=== PATIENT | male | born 1955 | race Caucasian/White ===

== ENCOUNTER 2019-07-08 16:02 | Outpatient (RCR) | payer OTHER, SELFPAY ==
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
--- NOTE | 2019-08-18 09:25 | PCPTNOTE ---
08/18/19 - patient has called and cancelled therapy this date. JTF
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
--- NOTE | 2019-10-17 09:30 | PCOTNOTE ---
Patient has been discharged from skilled OT services. Patient last seen on 09/20/19 (see last treatment note for status and progress towards goals). Patient was not scheduled for additional therapy secondary to radiation and then precautions of COVID-19. Patient discharged at this time.
== END 2019-09-16 23:59 | disposition home or self-care (01) ==
LOC: CHSPT 16:02
PROVIDERS: Visit Provider Psychiatry & Neurology Neurology
DX: S32.059A Unspecified fracture of fifth lumbar vertebra, initial encounter for closed fracture (principal); S22.010A Wedge compression fracture of first thoracic vertebra, initial encounter for closed fracture; S06.9X9A Unspecified intracranial injury with loss of consciousness of unspecified duration, initial encounter; C79.31 Secondary malignant neoplasm of brain; R53.1 Weakness
CPT/HCPCS: 97110; 97162; 97165; 97530

== ENCOUNTER 2019-08-22 15:30 | Outpatient (CLI) | payer OTHER, SELFPAY ==
[2019-08-22 15:41] LABS: Basophils Absolute Auto 0.01 K/mm3 (0.00-0.10); Basophils Percent Auto 0.1 % (0.0-1.0); Eosinophils Absolute Auto 0.05 K/mm3 (0.02-0.50); Eosinophils Percent Auto 0.4 % (1.0-6.0); Hematocrit 32.9 % (40.0-54.0); Hemoglobin 9.5 g/dL (14.0-18.0); Immature Granulocyte Absolute 0.25 K/mm3 (0.00-0.00); Immature Granulocyte Percent A 1.9 % (0.0-0.0); Lymphocytes Absolute Auto 1.46 K/mm3 (1.10-4.50); Lymphocytes Percent Auto 11.2 % (18.0-42.0); Mean Corpuscular HGB Conc 28.9 g/dL (32.0-36.0); Mean Corpuscular Hemoglobin 21.9 pg (27.0-31.0); Mean Platelet Volume 9.2 fl (8.7-11.0); Monocytes Absolute Auto 1.13 K/mm3 (0.10-0.90); Monocytes Percent Auto 8.6 % (2.0-11.0); Neutrophils Absolute Auto 10.2 K/mm3 (1.7-7.2); Neutrophils Percent Auto 77.8 % (50.0-70.0); Nucleated Red Blood Cells Absolute Auto 0.03 K/mm3 (0.00-0.00); Nucleated Red Blood Cells Perc 0.2 % (0-0.0); Platelet Count Result 271 K/mm3 (150-420); Red Blood Count 4.33 M/mm3 (4.70-6.10); Red Cell Distribution Width 21.7 % (11.6-14.4); White Blood Count 13.1 K/mm3 (4.8-10.8)
[2019-08-22 15:53] LABS: Add Urine Microscopic? YES; Appearance Urine Clear (Clear); Bilirubin Urine Negative (Negative); Blood Urine Negative (Negative); Color Urine Yellow (Yellow); Glucose Urine UA Negative (Negative); Ketones Urine Trace (Negative); Leukocyte Esterase Ur Negative (Negative); Nitrate Urine Negative (Negative); Protein Urine Negative (Negative); Urobilinogen Urine 0.2 mg/dL (0.2-1.0); pH Urine 5.5 (5.0-8.0)
[2019-08-22 16:14] LABS: Bacteria Urine Trace /hpf; WBC Urine 0-3 /hpf (0-3)
[2019-08-22 17:22] LABS: Alanine Aminotransferase 53 U/L (16-63); Albumin Level 2.3 g/dL (3.4-5.0); Alkaline Phosphatase 229 U/L (46-116); Anion Gap 16.2 mmol/L (7-16); Aspartate Amino Transferase 9 U/L (15-37); Bilirubin,Total 0.4 mg/dL (0.00-1.00); Blood Urea Nitrogen 27 mg/dL (7-18); Calcium 8.1 mg/dL (8.5-10.1); Carbon Dioxide 25 mmol/L (21-32); Chloride 104 mmol/L (98-108); Estimated Glomerular Filt Rate > 60; Glucose 119 mg/dL (70-99); Osmolality Calculated 298 mOsm/kg (285-295); Potassium 4.2 mmol/L (3.5-5.1); Sodium 141 mmol/L (136-145); Total Protein 5.5 g/dL (6.4-8.2)
== END 2019-08-22 15:31 | disposition home or self-care (01) ==
LOC: CHSLAB 15:32
PROVIDERS: PCP Internal Medicine; Visit Provider Internal Medicine
DX: N39.0 Urinary tract infection, site not specified (principal)
CPT/HCPCS: 36415; 80053; 81001; 85025; 87086; 87088

== ENCOUNTER 2019-09-20 10:43 | Outpatient (CLI) | payer OTHER, SELFPAY ==
--- NOTE | ~2019-09-20 | XR_ITS ---
EXAMINATION: XR humerus RT DATE: 09/20/2019 11:49 INDICATION: Right upper limb edema. Metastatic renal cell carcinoma. TECHNIQUE: 2 views of right humerus on 3 radiographs were obtained. COMPARISON: Right humerus radiographs 08/03/2019 FINDINGS: There is a transverse fracture of proximal humeral diaphysis in near-anatomic alignment wit h bone graft, plate and screws, and early callus formation. There are suture anchors in right humeral head. There is a lytic lesion of the body of the scapula. Right glenohumeral joint is normal. There is mild acromioclavicular joint osteoarthritis. IMPRESSION: 1. Healing transverse fracture of proximal humeral diaphysis status post open reduction internal fixa tion. 2. Lytic lesion of the scapula, consistent with metastatic disease. Reviewed, dictated and finalized at location A. IMPRESSION: 1. Healing transverse fracture of proximal humeral diaphysis status post open r eduction internal fixation. 2. Lytic lesion of the scapula, consistent with metastatic disease.
--- NOTE | ~2019-09-20 | XR_ITS ---
XR forearm RT 2V DATE: 09/20/2019 11:49 INDICATION: Swelling TECHNIQUE: 3 views COMPARISON: None FINDINGS: No fracture or dislocation, periosteal reaction or bone destruction. IMPRESSION: Negative Reviewed, dictated and finalized at location B. IMPRESSION: Negative
--- NOTE | ~2019-09-20 | US_ITS ---
EXAMINATION: US venous doppler UE RT DATE: 09/20/2019 11:40 INDICATION: Right hand swelling TECHNIQUE: Mena scale images with and without compression and Doppler images of the right upper extre mity veins were obtained. COMPARISON: None. FINDINGS: The right internal jugular vein, subclavian vein, axillary vein, brachial veins, basilic vein, cephal ic vein, radial vein, and ulnar vein are patent.] IMPRESSION: 1. Patent right upper extremity veins. No evidence of deep venous thrombosis. Reviewed, dictated and finalized at location A.
[2019-09-20 10:58] LABS: Hematocrit 28.3 % (40.0-54.0); Hemoglobin 7.7 g/dL (14.0-18.0); Mean Corpuscular HGB Conc 27.2 g/dL (32.0-36.0); Mean Corpuscular Hemoglobin 19.3 pg (27.0-31.0); Mean Corpuscular Volume 71.1 fL (78.0-102.0); Mean Platelet Volume 9.4 fl (8.7-11.0); Platelet Count Result 253 K/mm3 (150-420); Red Blood Count 3.98 M/mm3 (4.70-6.10); Red Cell Distribution Width 21.2 % (11.6-14.4); White Blood Count 9.5 K/mm3 (4.8-10.8)
[2019-09-20 11:17] LABS: Alanine Aminotransferase 35 U/L (16-63); Albumin Level 2.3 g/dL (3.4-5.0); Alkaline Phosphatase 197 U/L (46-116); Anion Gap 12.5 mmol/L (7-16); Aspartate Amino Transferase 8 U/L (15-37); Bilirubin,Total 0.3 mg/dL (0.00-1.00); Blood Urea Nitrogen 23 mg/dL (7-18); Calcium 8.5 mg/dL (8.5-10.1); Carbon Dioxide 27 mmol/L (21-32); Chloride 103 mmol/L (98-108); Estimated Glomerular Filt Rate > 60; Glucose 156 mg/dL (70-99); Osmolality Calculated 294 mOsm/kg (285-295); Potassium 3.5 mmol/L (3.5-5.1); Sodium 139 mmol/L (136-145); Total Protein 6.3 g/dL (6.4-8.2)
[2019-09-20 11:35] LABS: Band Neutrophils Percent 0 % (0-6); Basophils Percent Manual 0 % (0-1); Eosinophils Percent Manual 0 % (1-6); Lymphocytes Absolute Manual 1.52 K/mm3 (1.1-4.5); Lymphocytes Percent Manual 16 % (18-44); Metamyelocytes Percent 2 %; Monocytes Absolute Manual 1.14 K/mm3 (0.1-0.90); Monocytes Percent Manual 12 % (3-9); Neutrophils Absolute Manual 6.65 K/mm3 (1.3-6.7); Neutrophils Percent Manual 70 % (46-73); Platelet Estimate Adequate (Adequate); Total Cells Counted 100
[2019-09-21 12:46] LABS: Ferritin 175 ng/mL (26-388); Iron 18 ug/dL (65-175); Percent Iron Saturation 8 % (12-57)
== END 2019-09-20 10:44 | disposition home or self-care (01) ==
LOC: CHSIMG 10:45
PROVIDERS: PCP Internal Medicine; Visit Provider Internal Medicine
DX: R60.0 Localized edema (principal); Z98.890 Other specified postprocedural states
CPT/HCPCS: 36415; 73060; 73090; 80053; 82728; 83540; 83550; 85025; 93971

== ENCOUNTER 2019-09-26 12:41 | Outpatient (CLI) | payer OTHER, SELFPAY ==
[2019-09-26 13:00] LABS: Hematocrit 30.1 % (40.0-54.0); Hemoglobin 8.3 g/dL (14.0-18.0)
== END 2019-09-26 12:42 | disposition home or self-care (01) ==
LOC: CHSLAB 12:43
PROVIDERS: PCP Internal Medicine; Visit Provider Internal Medicine
DX: D64.9 Anemia, unspecified (principal)
CPT/HCPCS: 36415; 85014; 85018

== ENCOUNTER 2019-10-13 07:57 | Inpatient (IN) | payer OTHER, SELFPAY ==
[2019-10-13] VITALS (17 sets, daily range): BP systolic 81–155; BP diastolic 52–99; PULSE 106–170; RESP 18–28; TEMP 37.2–38.7; O2SAT 85–100; BMI 31.1
--- NOTE | ~2019-10-13 | XR_ITS ---
XR chest 1V portable DATE: 10/13/2019 08:46 INDICATION: Fever, cough. Dyspnea. TECHNIQUE: Portable AP chest on 10/13/2019 COMPARISON: None FINDINGS: There are extensive bilateral patchy areas of infiltrate and consolidation, most suggestive of bilateral pneumonia, left greater than right. Heart size appears within normal limits. There is minimal blunting of the right costophrenic angle suggesting minimal right pleural effusion. No pneumothorax. Plate and screws and anchor devices of right proximal humerus. IMPRESSION: Extensive bilateral pulmonary infiltrate/consolidation Reviewed, dictated and finalized at location B.
--- NOTE | ~2019-10-13 | CT_ITS ---
EXAMINATION: CTA chest PE protocol DATE: 10/13/2019 10:49 INDICATION: Dyspnea. Fever. History of renal carcinoma. TECHNIQUE: Computed tomography angiography (CTA) of the chest was performed with 100 mL Omnipaque-350 intravenous contrast timed to evaluate the pulmonary arteries. Coronal maximum intensity projection 3D-reconstructions were created by the technologist. Automated exposure control and iterative reconst ruction technique were employed. Exam dose: 1035.83 mGy-cm total exam DLP. COMPARISON: 10/13/2019 portable AP chest FINDINGS: There is diagnostic enhancement of the pulmonary arteries. There is no evidence of pulmona ry embolism. There is cardiomegaly. No pericardial effusion. There is mild right pleural effusion. There are calcified left hilar and subcarinal nodes, consistent with old pulmonary granulomatous dise ase. There is mild right hilar adenopathy. No left hilar or mediastinal adenopathy is detected. No thoracic aortic aneurysm. There are extensive patchy infiltrates with areas of consolidation, involving particularly the left u pper and lower lobes and right upper lobe. There are scattered pulmonary masses of variable size, measuring up to approximately 1.3 cm, consiste nt with pulmonary metastatic disease. Postoperative change in the right upper abdomen likely due to history of renal cancer. Neither kidney is evident in this CT pulmonary scan. Mild anterior wedge compression fracture deformity of T1. There are mixed bilateral subacute and old healed rib fractures. There is extensive osteolysis of the right scapula. U IMPRESSION: No evidence of pulmonary embolism. Extensive patchy infiltrates and consolidation involving particularly the left upper and lower lobes and right upper lobe; differential diagnosis includes extensive bilateral pneumonia, pulmonary edema Pulmonary metastatic disease Cardiomegaly, mild right pleural effusion. Reviewed, dictated and finalized at Location A. Reviewed, dictated and finalized at location B.
--- NOTE | 2019-10-13 08:09 | ECG_ITS ---
Measurements Intervals [place] Rate: 153 P: 97 LA: 133 QRS: 78 QRSD: 105 T: 52 QT: 259 QTc: 414 Interpretive Statements MULTIFOCAL ATRIAL TACHYCARDIA VENTRICULAR PREMATURE COMPLEX BASELINE WANDER- I, II, III, AVR, AVL, AVF, V1-V2, V4-V6 ABNORMAL ECG Electronically Signed On 10-13-2019 13:28:32 CDT by Denis Hoyos D.O.
[2019-10-13] MEDS: IPRATROPIUM 0.5 MG/ALBUTEROL SULFATE 2.5 MG AMPUL.NEB 3 ML INHALATION ×3 (08:24→17:51)
[2019-10-13 08:57] LABS: Base Excess ABG -0.6 mmol/L (0-2); HCO3 ABG 21.8 mmol/L (23-29); Oxygen Content ABG 13.6 %vol (16.0-22.0); Oxygen Saturation ABG 98.6 % (95-97); Oxyhemoglobin 97.3 % (94-100); PCO2 ABG 27.9 mmHg (35-45); PO2 ABG 117.8 mmHg (80-90); Total Hemoglobin 9.8 g/dL; pH ABG 7.51 (7.35-7.45)
[2019-10-13 08:58] LABS: Device NON-REBREATHER MASK; Modified Allen's Test Pass; Site Drawn LEFT RADIAL
[2019-10-13 09:01] LABS: Add Urine Microscopic? YES; Appearance Urine Clear (Clear); Bilirubin Urine Negative (Negative); Blood Urine Negative (Negative); Color Urine Yellow (Yellow); Glucose Urine UA 2+ (Negative); Ketones Urine Negative (Negative); Leukocyte Esterase Ur Negative LEU/UL (Negative); Nitrate Urine Negative (Negative); Protein Urine 1+ (Negative); Urobilinogen Urine >=8.0 mg/dL (0.2-1.0); pH Urine 7.5 (5.0-8.0)
[2019-10-13 09:08] LABS: Bacteria Urine Trace /hpf; Mucus Urine Few /lpf; RBC Urine 0-2 /hpf (0-2); Squamous Epithelial Cell Urine None seen /hpf (Few); WBC Urine 0-3 /hpf (0-3)
[2019-10-13 09:15] LABS: Influenza Control Valid (Valid)
[2019-10-13 09:16] LABS: Hematocrit 30.6 % (40.0-54.0); Hemoglobin 8.4 g/dL (14.0-18.0); Mean Corpuscular HGB Conc 27.5 g/dL (32.0-36.0); Mean Corpuscular Hemoglobin 19.1 pg (27.0-31.0); Mean Corpuscular Volume 69.7 fL (78.0-102.0); Mean Platelet Volume 9.2 fl (8.7-11.0); Platelet Count Result 187 K/mm3 (150-420); Red Blood Count 4.39 M/mm3 (4.70-6.10); Red Cell Distribution Width 23.2 % (11.6-14.4)
[2019-10-13 09:17] LABS: Band Neutrophils Percent 8 % (0-6); Lymphocytes Percent Manual 16 % (18-44); Neutrophils Percent Manual 68 % (46-73); Total Cells Counted 100
[2019-10-13 09:18] LABS: Basophils Percent Manual 0 % (0-1); Eosinophils Percent Manual 0 % (1-6); Metamyelocytes Percent 2 %; Monocytes Percent Manual 3 % (3-9); Myelocytes Percent 3 %; Nucleated Red Blood Cells 12 %; Platelet Estimate Adequate (Adequate)
[2019-10-13 09:19] LABS: BNP 240 pg/mL (0-100); Troponin I < 0.02 ng/mL (0.00-0.056)
[2019-10-13 09:20] LABS: D Dimer 2.29 mg/L (0.19-0.50)
[2019-10-13 09:25] LABS: Lactic Acid 3.1 mmol/L (0.4-2.0)
--- NOTE | 2019-10-13 09:33 | PC.NURSE ---
COVID-19 TESTING FORM REQUEST APPROVED BY [facility]. AUTHORIZATION CODE : [id number] , LAB CYTOLOGY MANAGER, LEONORA , NOTIFIED. COPY OF EMAILED APPROVAL ATTACHED TO CHART.
[2019-10-13 09:43] LABS: Alanine Aminotransferase 21 U/L (16-63); Albumin Level 1.8 g/dL (3.4-5.0); Alkaline Phosphatase 109 U/L (46-116); Anion Gap 16.2 mmol/L (7-16); Aspartate Amino Transferase 11 U/L (15-37); Bilirubin,Total 1.2 mg/dL (0.00-1.00); Blood Urea Nitrogen 15 mg/dL (7-18); Calcium 8.3 mg/dL (8.5-10.1); Carbon Dioxide 27 mmol/L (21-32); Chloride 100 mmol/L (98-108); Estimated CRCL calculation 78 ml/min; Estimated Glomerular Filt Rate > 60; Glucose 216 mg/dL (70-99); Osmolality Calculated 295 mOsm/kg (285-295); Potassium 4.2 mmol/L (3.5-5.1); Sodium 139 mmol/L (136-145); Total Protein 5.8 g/dL (6.4-8.2)
[2019-10-13] MEDS: methylPREDNISolone SOD SUCC 125 MG VIAL IV PUSH (09:45)
[2019-10-13] MEDS: SODIUM CHLORIDE 0.9% IV 1,000 ML 999 ML IV CONT (09:50)
--- NOTE | 2019-10-13 10:15 | PC.NURSE ---
pt complaint of back pain, erp notified. request for keppra medication per . erp notified. pt wanting oxygen off, attempted to removed. sapo2 decreased to 88% at room air. NRB mask reapplied. pt voiced understanding. Code status form filled out per . This specifications writer read word for word each section. agrees with selected items.
--- NOTE | 2019-10-13 10:24 | ED.URI ---
HPI - URI/Sore Throat General Chief Complaint: Upper Respiratory Infection Stated Complaint: ambulance Source: patient and family Mode of arrival: EMS Limitations: no limitations History of Present Illness HPI Narrative: This is a 64-year-old male patient presents to the emergency department via EMS after he had a a telemedicine encounter with his primary care physician where he was complaining of cough fever up to 101.6 with shortness of breath, cough was productive of clear sputum, patient had gotten worse overnight and was brought in by EMS on a non-rebreather, the patient has a history of renal cell carcinoma with metastases and recent radiation therapy approximately 2 weeks ago at [facility]. Patient also has a history of LAURI, hyperlipidemia seizure disorder. Patient lives at home with and no foreign travel but has fever with a cough respiratory distress with dyspnea and recent radiation therapy at [facility]. After speaking to patient and family the patient requested no intubation although he does want CPR performed if necessary. MD elicited complaint: fever, cough and nasal congestion Onset (ago): day(s) Consistency: constant Severity: moderate Pain scale (0-10): 6 Description of mucous: clear Able to tolerate fluids by mouth: Yes Associated symptoms: fever, myalgias, cough and shortness of breath Treatments prior to arrival: none Related Data Home Medications Medication Instructions Recorded Confirmed cabozantinib 20 mg PO DAILY 06/16/19 10/13/19 Keppra 750 mg PO BID 08/03/19 10/13/19 dexamethasone 2 mg BYMOUTH BID 08/03/19 10/13/19 Allergies Allergy/AdvReac Type Severity Reaction Status Date / Time codeine Allergy Mild HALLUCINATI Verified 01/12/19 13:18 ONS Review of Systems Review of Systems: All systems reviewed & are unremarkable except as noted in HPI and below PMFSH Past Medical History Medical History Cancer related pain Constipation due to slow transit Dementia Depression Gout Insomnia Metastatic cancer to brain Metastatic renal cell carcinoma to brain Renal cell cancer Surgical History Surgical History H/O repair of right rotator cuff History of nephrectomy, right Family History Family History Mother Acute myocardial infarction Hypertension Cerebrovascular accident Father Acute myocardial infarction Hypertension Cerebrovascular accident Father No problems noted. Mother No problems noted. Social History Social History Smoking packs per day: 1 Smoking cigarettes per day: 20.0 Smoking status: Former smoker Tobacco type: cigarettes Second hand tobacco smoke exposure: Yes Alcohol intake: never Substance use: never Substance use type: does not use Gender identity (if verbalized by the patient): Male Spiritual care concerns: No Agree to blood products: Yes Exam Const: General: no acute distress and ill appearing Nutritional Appearance: well nourished and obese HENMT: Head: normal to inspection Mouth: Yes dry mucous membranes Eyes: Conjunctivae: conjunctivae normal Pupils: Equal, round and reactive pupils present Neck: Neck: normal visual inspection and no lymphadenopathy Chest: Chest palpation & inspection: normal inspection of the chest Resp: Effort & Inspection: labored and tachypneic Auscultation: rhonchi and diminished lung sounds Cardio: Rate: tachycardic GI: GI Palp: Yes Soft to palpation : Testes: Testes normal Back/Spine/Pelvis: Back: CVA tenderness Skin: General skin exam: normal color Rashes: no rashes Neuro: General: moves all extremities and no meningeal signs Extrem: General: edema Psych: Mental Status: mental status grossly normal Affect: normal affect
[2019-10-13] MEDS: MORPHINE SULFATE 2 MG/ML INJ IV PUSH (10:27)
[2019-10-13] MEDS: levETIRAcetam Tablet 250 MG, levETIRAcetam Tablet 500 MG 750 MG PO (10:33)
--- NOTE | 2019-10-13 11:15 | PC.NURSE ---
1110 pt sleeping quietly, at bedside. pt admission requested per dr perez. call to 2nd floor, to call Lillian at home. [phone] per rose mary, charge nurse. [phone] no answer , attempted x2. will await return call from message left per voicemail.
--- NOTE | 2019-10-13 11:23 | PC.NURSE ---
pt to be admitting to room 212, for full admit per dre, spring encaser.
--- NOTE | 2019-10-13 12:04 | PC.NURSE ---
pt to go to floor room 212 per stretcher with floor nurses and .
--- NOTE | 2019-10-13 12:13 | PC.NURSE ---
pt departs emergency department with CAITLYN Saeed.
--- NOTE | 2019-10-13 12:30 | ADMGEN ---
This patient, Daren Mckinley, was admitted to 2nd Floor Room 212-1. Patient/family oriented to hospital policies and general routines including ID bracelet, bed and alarms, visiting hours, pain management, procedures, bathroom and other care routines, personal items, smoking policy, room service/diet, and visiting hours. Valuables list has been completed. Information on how to activate the Rapid Response Team has been discussed. Patient/Family are encouraged to report perceived risks to care and to ask questions if they do not understand what they are told or what they should do.
[2019-10-13] MEDS: SODIUM CHLORIDE 0.9% IV 1,000 ML 100 ML IV CONT (12:45)
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
[2019-10-13] MEDS: GABAPENTIN 300 MG CAPSULE PO (17:13)
[2019-10-13] MEDS: BENZONATATE 100 MG CAPSULE 200 MG PO (17:13)
[2019-10-13] MEDS: LORAZEPAM INJ 2 MG/ML VIAL 0.5 MG IV PUSH (17:50)
[2019-10-13] MEDS: CYCLOBENZAPRINE HCL 10 MG TABLET 5 MG PO (20:09)
[2019-10-13] MEDS: levETIRAcetam 500 MG TABLET 750 MG PO (20:10)
[2019-10-13] MEDS: MORPHINE SULFATE 2 MG/ML INJ (21:37)
--- NOTE | 2019-10-13 21:39 | PC.NURSE ---
Patient continues to have extreme discomfort generalized and his chest. PRN norco ineffectine PRN morphine gven
[2019-10-14] VITALS (13 sets, daily range): BP systolic 104–130; BP diastolic 45–79; PULSE 102–159; RESP 14–28; TEMP 36.6–37.2; O2SAT 92–94
[2019-10-14] MEDS: IPRATROPIUM 0.5 MG/ALBUTEROL SULFATE 2.5 MG AMPUL.NEB 3 ML INHALATION ×3 (00:08→11:32)
--- NOTE | 2019-10-14 00:21 | PC.NURSE ---
Patient responsive to voice. Denies pain at this time. Neblulizer treatment given but patient unable to tolerate mask for duration treatment.
--- NOTE | 2019-10-14 02:03 | PC.NURSE ---
[address] Lyons regarding pt's tachycardia. No new orders at this time.
[2019-10-14] MEDS: MORPHINE SULFATE 2 MG/ML INJ IV PUSH ×2 (03:51→08:24)
--- NOTE | 2019-10-14 07:10 | PC.NURSE ---
Patient sleeping quietly in bed with hob elevated. No signs of distress noted. Breathing unlabored. Telemetry monitoring continue per order, HR 104, Rhythm shows sinus tach with occasional PVC's.Patient has call light at side.
[2019-10-14] MEDS: levETIRAcetam 500 MG TABLET 750 MG PO (07:51)
[2019-10-14] MEDS: BENZONATATE 100 MG CAPSULE 200 MG PO (07:51)
[2019-10-14] MEDS: PANTOPRAZOLE 40 MG TABLET PO (07:52)
[2019-10-14] MEDS: LIDOCAINE 5% PATCH 3 PATCH TOPICAL (07:52)
[2019-10-14] MEDS: ESCITALOPRAM OXALATE 10 MG TABLET PO (07:52)
[2019-10-14] MEDS: GABAPENTIN 300 MG CAPSULE PO (07:52)
[2019-10-14] MEDS: allopurinoL 100 MG TABLET PO (07:52)
[2019-10-14 08:09] LABS: Hematocrit 23.8 % (40.0-54.0); Mean Corpuscular HGB Conc 27.7 g/dL (32.0-36.0); Mean Corpuscular Hemoglobin 19.2 pg (27.0-31.0); Mean Corpuscular Volume 69.2 fL (78.0-102.0); Mean Platelet Volume 10.2 fl (8.7-11.0); Platelet Count Result 126 K/mm3 (150-420); Red Blood Count 3.44 M/mm3 (4.70-6.10); Red Cell Distribution Width 22.4 % (11.6-14.4); White Blood Count 7.5 K/mm3 (4.8-10.8)
[2019-10-14 08:13] LABS: Hemoglobin 6.6 g/dL (14.0-18.0)
--- NOTE | 2019-10-14 08:17 | PC.NURSE ---
Dr Shepherd notified of Hemaglobin level 6.6 no new orders at the moment.
[2019-10-14 08:29] LABS: Alanine Aminotransferase 17 U/L (16-63); Albumin Level 1.5 g/dL (3.4-5.0); Alkaline Phosphatase 90 U/L (46-116); Anion Gap 14.3 mmol/L (7-16); Aspartate Amino Transferase 12 U/L (15-37); Bilirubin,Total 0.4 mg/dL (0.00-1.00); Blood Urea Nitrogen 19 mg/dL (7-18); Calcium 7.9 mg/dL (8.5-10.1); Carbon Dioxide 25 mmol/L (21-32); Chloride 103 mmol/L (98-108); Estimated CRCL calculation 87 ml/min; Estimated Glomerular Filt Rate > 60; Glucose 283 mg/dL (70-99); Osmolality Calculated 298 mOsm/kg (285-295); Potassium 4.3 mmol/L (3.5-5.1); Sodium 138 mmol/L (136-145); Total Protein 5.3 g/dL (6.4-8.2)
[2019-10-14 08:38] LABS: Band Neutrophils Percent 10 % (0-6); Lymphocytes Percent Manual 4 % (18-44); Metamyelocytes Percent 1 %; Monocytes Percent Manual 4 % (3-9); Myelocytes Percent 1 %; Neutrophils Absolute Manual 6.75 K/mm3 (1.3-6.7); Neutrophils Percent Manual 80 % (46-73); Nucleated Red Blood Cells 1 %; Platelet Estimate Decreased (Adequate); Total Cells Counted 100
[2019-10-14 08:40] LABS: Lactic Acid 1.5 mmol/L (0.4-2.0)
--- NOTE | 2019-10-14 13:29 | P.DS_ITS ---
DS: Diagnosis Admitting Diagnosis Admitting Diagnosis: Pneumonia, unspecified organism Discharge Diagnosis (1) Pneumonia: Qualifiers: Laterality: bilateral Lung location: unspecified part of lung Pneumonia type: due to unspecified organism Qualified Code(s): J18.9 - Pneumonia, unspecified organism Code(s): J18.9 - Pneumonia, unspecified organism Status: Acute Assessment and Plan: * Chest x-ray indicates right lower lobe airspace disease, could be atelectasis or pneumonia. * will continue azithromycin and Rocephin. did receive stat you Solu-Medrol. would discontinue Solu-Medrol right now are contraindicated with COVID-19 * will resume steroids when appropriate * influenza negative, COVID-19 pending * continue oxygen supplement currently patient is on a non-rebreather at 15 L * continue nebulizer * monitor oxygen levels as ordered * Family and patient POA has decided to have patient discharged home today and begin [facility] today. This will be arranged through [facility] and his family. (2) Acute respiratory distress: Code(s): R06.03 - Acute respiratory distress Status: Acute Assessment and Plan: * possibly secondary to pneumonia and or covid19 * continue supplementary oxygen * continue antibiotic treatment * continue nebulizers * patient is a DNI * monitor oxygen levels as ordered * influenza negative, CIVID-19 negative, CTA negative for PE * Family and patient POA has decided to have patient discharged home today and begin [facility] today. This will be arranged through [facility] and his family. (3) Insomnia: Code(s): G47.00 - Insomnia, unspecified Status: Acute Assessment and Plan: * according to patient takes Flexeril and gabapentin at night for sleep. * Family and patient POA has decided to have patient discharged home today and begin [facility] today. This will be arranged through [facility] and his family. (4) Dementia: Code(s): F03.90 - Unspecified dementia without behavioral disturbance Status: Acute Assessment and Plan: controlled * patient does not take home medication for dementia Family and patient POA has decided to have patient discharged home today and begin [facility] today. This will be arranged through [facility] and his family. (5) Depression: Code(s): F32.9 - Major depressive disorder, single episode, unspecified Status: Acute Assessment and Plan: * continue escitalopram Family and patient POA has decided to have patient discharged home today and begin [facility] today. This will be arranged through Angie Lemos and his family. (6) Gout: Code(s): M10.9 - Gout, unspecified Status: Acute Assessment and Plan: * continue allopurinol Family and patient POA has decided to have patient discharged home today and begin [facility] today. This will be arranged through [facility] and his family. (7) Cancer related pain: Code(s): G89.3 - Neoplasm related pain (acute) (chronic) Status: Acute Assessment and Plan: * patient takes cabozantinib at home for cancer treatment. discontinue use of chemo medication due to lesions in his mouth. * patient will follow-up with oncologist on discharge * Family and patient POA has decided to have patient discharged home today and begin [facility] today. This will be arranged through [facility]ie Blum [facility]
--- NOTE | 2019-10-14 13:29 | PM.DS ---
DS: Diagnosis Admitting Diagnosis Admitting Diagnosis: Pneumonia, unspecified organism Discharge Diagnosis (1) Pneumonia: Qualifiers: Laterality: bilateral Lung location: unspecified part of lung Pneumonia type: due to unspecified organism Qualified Code(s): J18.9 - Pneumonia, unspecified organism Code(s): J18.9 - Pneumonia, unspecified organism Status: Acute Assessment and Plan: Chest x-ray indicates right lower lobe airspace disease, could be atelectasis or pneumonia. will continue azithromycin and Rocephin. did receive stat you Solu-Medrol. would discontinue Solu-Medrol right now are contraindicated with COVID-19 will resume steroids when appropriate influenza negative, COVID-19 pending continue oxygen supplement currently patient is on a non-rebreather at 15 L continue nebulizer monitor oxygen levels as ordered Family and patient POA has decided to have patient discharged home today and begin [facility] today. This will be arranged through [facility] and his family. (2) Acute respiratory distress: Code(s): R06.03 - Acute respiratory distress Status: Acute Assessment and Plan: possibly secondary to pneumonia and or covid19 continue supplementary oxygen continue antibiotic treatment continue nebulizers patient is a DNI monitor oxygen levels as ordered influenza negative, CIVID-19 negative, CTA negative for PE Family and patient POA has decided to have patient discharged home today and begin [facility] today. This will be arranged through [facility] and his family. (3) Insomnia: Code(s): G47.00 - Insomnia, unspecified Status: Acute Assessment and Plan: according to patient takes Flexeril and gabapentin at night for sleep. Family and patient POA has decided to have patient discharged home today and begin [facility] today. This will be arranged through [facility] and his family. (4) Dementia: Code(s): F03.90 - Unspecified dementia without behavioral disturbance Status: Acute Assessment and Plan: controlled patient does not take home medication for dementia Family and patient POA has decided to have patient discharged home today and begin [facility] today. This will be arranged through [facility] and his family. (5) Depression: Code(s): F32.9 - Major depressive disorder, single episode, unspecified Status: Acute Assessment and Plan: continue escitalopram Family and patient POA has decided to have patient discharged home today and begin [facility] today. This will be arranged through [facility] and his family. (6) Gout: Code(s): M10.9 - Gout, unspecified Status: Acute Assessment and Plan: continue allopurinol Family and patient POA has decided to have patient discharged home today and begin [facility] today. This will be arranged through [facility] and his family. (7) Cancer related pain: Code(s): G89.3 - Neoplasm related pain (acute) (chronic) Status: Acute Assessment and Plan: patient takes cabozantinib at home for cancer treatment. discontinue use of chemo medication due to lesions in his mouth. patient will follow-up with oncologist on discharge Family and patient POA has decided to have patient discharged home today and begin [facility] today. This will be arranged through [facility] and his family. 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 according to patient takes dexamethason for his brain lesions. I did
--- NOTE | 2019-10-14 14:50 | PC.NURSE ---
Patient going home on [facility]. Ambulance here to transport patient home. Report given to EMS. Pt. transfered from bed to stretcher with 3x assist. All belongings and discharge instructions/education/scripts sent with patient. Patient states understanding. Left via stretcher accompanied by EMS.
--- NOTE | 2019-10-14 20:49 | PM.EVENT ---
Event Note Event Note Event Note: Patient complains of pain. Mostly in his back and arm. Alerts to voice. Not oriented. Mild respiratory distress without accessory muscle use. Bilateral rales and rhonchi. Regular tachycardia. Diffuse edema. Abdomen soft and nontender. Patient's family is agreed to enroll him in hospice care and will take care of him at home. I have reviewed the chart and examined the patient. I discussed the patient with A Tello LYNN and agree with her assessment and plan.
== END 2019-10-14 14:50 | disposition hospice, home (50) | DRG 194 ==
LOC: CHSED 11:47 → CHS2ND 11:48
PROVIDERS: Emergency Medicine; Admitting Provider Emergency Medicine; Emergency Provider Emergency Medicine; PCP Internal Medicine; Visit Provider Emergency Medicine
DX: J18.9 Pneumonia, unspecified organism (principal); C79.31 Secondary malignant neoplasm of brain; C78.00 Secondary malignant neoplasm of unspecified lung; R06.03 Acute respiratory distress; Z20.828 Contact with and (suspected) exposure to other viral communicable diseases; R56.9 Unspecified convulsions; G89.3 Neoplasm related pain (acute) (chronic); G47.00 Insomnia, unspecified; F32.9 Major depressive disorder, single episode, unspecified; M10.9 Gout, unspecified; S22.41XD Multiple fractures of ribs, right side, subsequent encounter for fracture with routine healing; S42.201D Unspecified fracture of upper end of right humerus, subsequent encounter for fracture with routine healing; Z85.528 Personal history of other malignant neoplasm of kidney; Z92.3 Personal history of irradiation
CPT/HCPCS: 36415; 36600; 71045; 71275; 80053; 81001; 82805; 83605; 83880; 84484; 85025; 85380; 87040; 87804; 93005; 94640; 96365; 96366; 96368; 96375; 99285; 99291; A9270; J0456; J0696; J2060; J2270; J2930; J7030; Q9965